=== PATIENT | male | born 1990 ===

== ENCOUNTER → 2018-12-27 | Outpatient (CLI) | payer OTHER | END | disposition home or self-care (01) | LOC: LAB SALUS 10:43 | DX: Z11.59 Encounter for screening for other viral diseases (principal); Z11.4 Encounter for screening for human immunodeficiency virus [HIV]; Z72.51 High risk heterosexual behavior; Z11.3 Encounter for screening for infections with a predominantly sexual mode of transmission; Z71.51 Drug abuse counseling and surveillance of drug abuser; R10.84 Generalized abdominal pain; Z00.8 Encounter for other general examination; Z83.3 Family history of diabetes mellitus; R53.1 Weakness ==